=== PATIENT | female | born 1960 | race Caucasian/White ===

== ENCOUNTER 2019-10-23 08:59 | Day surgery (SDC) | payer MEDICARE, SELFPAY ==
[~2019-10-23] VITALS: Ht 172.7 cm; Wt 72.1 kg
[~2019-10-23 08:59] MED LIST: ASPI81EC PO; Fluoxetine HCl10 M1 PO; GABA100 PO; HYDR1TAB94 PO; Pepcid20 MG PO; RIZA PO; Zofran8 MG PO
[2019-10-23] MEDS ORDERED: ONDA4ODT (09:53)
[2019-10-23] MEDS ORDERED: HYDCHL12.5 (09:53)
[2019-10-23] MEDS ORDERED: OMEP20ER (09:54)
[2019-10-23] MEDS ORDERED: ROPI.25 (09:54)
[2019-10-23] MEDS ORDERED: TRAM50 (09:54)
== END 2019-10-23 11:30 | disposition home or self-care (01) ==
LOC: ORSCSDS 08:59
PROVIDERS: Internal Medicine Gastroenterology
PROC: 0DB68ZX Excision of Stomach, Via Natural or Artificial Opening Endoscopic, Diagnostic (ICD-10-PCS; principal; 2019-10-23 10:30)
DX: R10.9 Unspecified abdominal pain (principal); R10.13 Epigastric pain; K44.9 Diaphragmatic hernia without obstruction or gangrene; K31.7 Polyp of stomach and duodenum; K21.9 Gastro-esophageal reflux disease without esophagitis; Z79.899 Other long term (current) drug therapy
CPT/HCPCS: 88305; 88342; J2704; J7120

== ENCOUNTER 2020-07-30 09:53 | Emergency (ER) | payer MEDICARE, SELFPAY ==
[~2020-07-30] VITALS: Ht 172.7 cm; Wt 70.3 kg
[~2020-07-30 09:53] MED LIST changes: +HYDCHL12.5; +OMEP20ER; +ONDA4ODT; +ROPI.25; +TRAM50
[2020-07-30] MEDS ORDERED: PROM25 PO (10:17)
[2020-07-30 10:47] LABS: BASOPHILS ABSOLUTE AUTO 0.04 K/mm3 (0.00-0.23); BASOPHILS PERCENT AUTO 0 % (0-2); EOSINOPHILS ABSOLUTE AUTO 0.03 K/mm3 (0.00-0.68); EOSINOPHILS PERCENT AUTO 0 % (0-6); Hematocrit 41.4 % (33.0-51.0); Hemoglobin 14.8 g/dL (11.5-16.0); IMMATURE GRAN ABSOLUTE AUTO 0.02 K/mm3 (0.00-0.10); IMMATURE GRAN PERCENT AUTO 0 % (0-1); LYMPHOCYTES ABSOLUTE AUTO 2.17 K/mm3 (0.84-5.20); LYMPHOCYTES PERCENT AUTO 21 % (21-46); MONOCYTES PERCENT AUTO 6 % (4-13); Mean Corpuscular HGB 30.1 pg (26.0-34.0); Mean Corpuscular HGB Conc 35.7 g/dL (31.5-36.5); Mean Platelet Volume 10.8 fL (9.1-12.4); NEUTROPHILS PERCENT AUTO 73 % (41-73); Platelet Count 279 K/mm3 (150-400); RDW Coefficient Variation 12.1 % (11.7-14.2); Red Blood Cell Count 4.92 M/mm3 (3.80-5.20); White Blood Cell Count 10.56 K/mm3 (4.00-11.30)
[2020-07-30 10:55] LABS: Alanine Aminotransfer (ALT/SGP 25 U/L (12-78); Albumin, Blood 4.8 g/dL (3.4-5.0); Albumin/Globulin Ratio 1.3 (0.8-1.8); Alk Phos 76 U/L (50-136); Anion Gap 8 mmol/L (6-16); Aspartate Aminotrans (AST/SGOT 22 U/L (12-37); Bilirubin, Total 1.4 mg/dL (0.1-1.0); Blood Urea Nitrogen 9 mg/dL (8-24); Bun/Creatinine Ratio 12.5 (12.0-20.0); CO2, Blood 24 mmol/L (21-32); Calcium, Blood 9.4 mg/dL (8.5-10.1); Chloride, Blood 95 mmol/L (98-108); Creatinine, Blood 0.72 mg/dL (0.40-1.00); Globulin, Blood 3.8 g/dL (2.2-4.0); Glomerular Filtration Rate >60 (60-); Glucose, Blood 105 mg/dL (70-99); Potassium, Blood 3.5 mmol/L (3.5-5.5); Sodium, Blood 127 mmol/L (136-145); Total Protein, Blood 8.6 g/dL (6.4-8.2)
[2020-07-30 10:56] LABS: Mean Corpuscular Volume 84 fL (80-100)
[2020-07-30 11:23] LABS: Source, Urine Clean Catch
[2020-07-30 11:45] LABS: Bilirubin, Urine Neg (Neg); Blood, Urine 1+ (Neg); Glucose Qualitative, Urine 1+ (Neg); Ketones, Urine 4+ (Neg); Leukocyte Esterase, Urine 1+ (Neg); Nitrite, Urine Neg (Neg); Protein, Urine 3+ (Neg); Urobilinogen, Urine NORM (Normal)
[2020-07-30 11:49] LABS: Appearance, Urine Clear (Clear); Color, Urine Yellow (P-Yellow)
[2020-07-30 11:53] LABS: Bacteria Rare /hpf; Red Blood Cells, Urine 0-2 /hpf (0-2); Squamous Epithelial Cells Few /hpf (Few); White Blood Cells, Urine 0-2 /hpf (0-5)
[2020-07-30] MEDS ORDERED: ONDA4ODT MM (12:59)
== END 2020-07-30 13:13 | disposition home or self-care (01) ==
LOC: ER 09:53
PROVIDERS: Emergency Medicine
DX: K29.00 Acute gastritis without bleeding (principal); Z91.013 Allergy to seafood; Z88.0 Allergy status to penicillin; Z88.5 Allergy status to narcotic agent; Z79.899 Other long term (current) drug therapy
CPT/HCPCS: 36415; 74177; 80053; 81001; 83690; 85025; 87086; 99284-25; Q9967

== ENCOUNTER → 2020-08-01 | Outpatient (CLI) | payer MEDICARE ==
[~2020-08-01] MED LIST changes: +ONDA4ODT MM; +PROM25 PO
[2020-08-01 16:32] LABS: Source, Urine Clean Catch
[2020-08-01 17:19] LABS: Bilirubin, Urine Neg (Neg); Blood, Urine Neg (Neg); Glucose Qualitative, Urine Neg (Neg); Ketones, Urine 2+ (Neg); Leukocyte Esterase, Urine Neg (Neg); Nitrite, Urine Neg (Neg); Protein, Urine Neg (Neg); Urobilinogen, Urine NORM (Normal)
[2020-08-01 18:05] LABS: Appearance, Urine Clear (Clear); Color, Urine Pale Yellow (P-Yellow)
== END | disposition home or self-care (01) ==
LOC: LAB 16:28 → LAB SHORT 16:28
PROVIDERS: Student in an Organized Health Care Education/Training Program
DX: R10.9 Unspecified abdominal pain (principal); R11.2 Nausea with vomiting, unspecified
CPT/HCPCS: 81003

== ENCOUNTER → 2022-02-14 | Outpatient (CLI) | payer MEDICARE, BC | LOC: LAB SHORT 11:18 → PLD 11:18 | DX: D48.5 Neoplasm of uncertain behavior of skin (principal) | CPT/HCPCS: 88305 ==

== ENCOUNTER → 2022-11-07 | Outpatient (CLI) | payer BC ==
[2022-11-07 13:39] LABS: Source, Urine Clean Catch
[2022-11-07 17:04] LABS: Appearance, Urine Clear (Clear); Bilirubin, Urine Neg (Neg); Blood, Urine Neg (Neg); Glucose Qualitative, Urine Neg (Neg); Ketones, Urine Neg (Neg); Leukocyte Esterase, Urine Neg (Neg); Nitrite, Urine Neg (Neg); Protein, Urine Neg (Neg); Urobilinogen, Urine NORM (Normal)
[2022-11-07 19:24] LABS: Color, Urine Pale Yellow (P-Yellow)
== END | disposition home or self-care (01) ==
LOC: LAB SHORT 13:35 → LAB 13:35
PROVIDERS: Student in an Organized Health Care Education/Training Program
DX: R11.2 Nausea with vomiting, unspecified (principal); R53.83 Other fatigue
CPT/HCPCS: 81003

== ENCOUNTER → 2023-01-08 | Outpatient (CLI) | payer BC, MEDICARE | LOC: PLD 15:16 → LAB SHORT 15:16 | DX: D48.5 Neoplasm of uncertain behavior of skin (principal) | CPT/HCPCS: 88305 ==

== ENCOUNTER 2023-02-28 02:41 | Emergency (ER) | payer BC, MEDICARE ==
[~2023-02-28] VITALS: Ht 167.6 cm; Wt 70.3 kg
[2023-02-28] MEDS ORDERED: PRED5 PO (02:48)
[2023-02-28] MEDS ORDERED: CEPH500 (02:48)
[2023-02-28 04:14] VITALS: BP 147/94
[2023-02-28] MEDS ORDERED: EPIPEN0.3 MG/0.3 IM (04:15)
== END 2023-02-28 04:39 | disposition home or self-care (01) ==
LOC: ER 02:41
DX: R22.0 Localized swelling, mass and lump, head (principal)
CPT/HCPCS: 99284

== ENCOUNTER → 2023-04-11 | Outpatient (CLI) | payer BC, MEDICARE ==
[~2023-04-11] MED LIST changes: +CEPH500; +EPIPEN0.3 MG/0.3 IM; +PRED5 PO
[2023-04-14 22:24] LABS: HSV 1 SUBTYPE BY PCR Not Detected; HSV 2 SUBTYPE BY PCR Not Detected; HSV SUBTYPE SOURCE TIP OF NOSE
[2023-04-15 11:52] LABS: VARICELLA-ZOSTER VIRUS BY PCR Not Detected; VARICELLA-ZOSTER VIRUS SOURCE TIP OF NOSE
== END ==
LOC: LAB 09:25 → LAB SHORT 09:25
PROVIDERS: Dermatology
DX: L08.0 Pyoderma (principal)
CPT/HCPCS: 87070; 87077; 87186; 87205; 87529; 87798

== ENCOUNTER → 2023-10-16 | Outpatient (CLI) | payer BC, MEDICARE | END | disposition home or self-care (01) | LOC: LAB SHORT 13:22 → LAB 13:22 | DX: L08.0 Pyoderma (principal) | CPT/HCPCS: 87070; 87205 ==

== ENCOUNTER 2024-06-02 06:34 | Day surgery (SDC) | payer MEDICARE ==
[~2024-06-02] VITALS: Ht 170.2 cm; Wt 70.2 kg
[2024-06-02] MEDS ORDERED: REGLAN1013 PO (07:20)
[2024-06-02] MEDS ORDERED: VITAMIN D350 MC3 PO (07:21)
[2024-06-02] MEDS ORDERED: Metronidazole T45 GM (07:21)
[2024-06-02] MEDS ORDERED: DIPH50 PO (07:22)
[2024-06-02] MEDS ORDERED: Estrace Vagin42.5 GM VAG (07:23)
[2024-06-02] MEDS ORDERED: HYDCHL12.5 PO (07:24)
[2024-06-02] MEDS ORDERED: METR59TL (07:25)
[2024-06-02] MEDS ORDERED: Lactated Ringer's 1,000 ML IV ONE ×2 (07:35→07:37)
[2024-06-02] MEDS ORDERED: propofoL 50 ML IV ONE (07:35)
[2024-06-02 09:14] VITALS: BP 123/84
== END 2024-06-02 09:15 | disposition home or self-care (01) ==
LOC: ORSCSDS 06:34
PROVIDERS: Internal Medicine Gastroenterology
PROC: 0DBE8ZX Excision of Large Intestine, Via Natural or Artificial Opening Endoscopic, Diagnostic (ICD-10-PCS; principal; 2024-06-02 08:00)
PROC: 0DB98ZX Excision of Duodenum, Via Natural or Artificial Opening Endoscopic, Diagnostic (ICD-10-PCS; principal; 2024-06-02 08:00)
DX: R19.4 Change in bowel habit (principal); R10.33 Periumbilical pain; R13.10 Dysphagia, unspecified; Z86.0100 Personal history of colon polyps, unspecified; Z86.018 Personal history of other benign neoplasm; K57.10 Diverticulosis of small intestine without perforation or abscess without bleeding; R10.9 Unspecified abdominal pain; R11.2 Nausea with vomiting, unspecified; K44.9 Diaphragmatic hernia without obstruction or gangrene; E55.9 Vitamin D deficiency, unspecified; K21.00 Gastro-esophageal reflux disease with esophagitis, without bleeding; Z79.899 Other long term (current) drug therapy
CPT/HCPCS: 88305; J2704; J7120